=== PATIENT | female | born 1970 | race Caucasian/White ===

== ENCOUNTER 2016-05-05 | Outpatient (CLI) | END 2016-05-05 21:37 | disposition critical access hospital (66) | CPT/HCPCS: A0425; A0429 ==

== ENCOUNTER 2016-05-05 21:48 | Emergency (ER) | payer MEDICAID ==
[2016-05-05] MEDS ORDERED: KETOROLAC 60 MG/2 ML VIAL IM STA (21:59)
[2016-05-05] MEDS ORDERED: CYCLOBENZAPRINE 10 MG TABLET PO STA (22:00)
[2016-05-05] MEDS ORDERED: KETOROLAC 60 MG/2 ML VIAL ONE (22:03)
[2016-05-05] MEDS ORDERED: CYCLOBENZAPRINE 10 MG TABLET PO ONE (22:03)
== END 2016-05-05 23:36 | disposition home or self-care (01) ==
DX: S39.012A Strain of muscle, fascia and tendon of lower back, initial encounter (principal); X58.XXXA Exposure to other specified factors, initial encounter; M62.830 Muscle spasm of back; M79.7 Fibromyalgia; Z87.891 Personal history of nicotine dependence
CPT/HCPCS: 72110; 72170; 72202; 96372; 99283; 99284; A9270

== ENCOUNTER 2016-07-27 10:47 | Emergency (ER) | payer MEDICAID ==
[2016-07-27] MEDS ORDERED: BENZONATATE 100 MG CAPSULE PO STA (11:18)
[2016-07-27] MEDS ORDERED: OXYMETAZOLINE NASAL SPRAY NAS STA (11:20)
[2016-07-27] MEDS ORDERED: guaiFENesin/DEXTROMETHORPHAN 10 ML UDC PO STA (11:20)
[2016-07-27] MEDS ORDERED: BENZONATATE 100 MG CAPSULE PO ONE (11:38)
[2016-07-27] MEDS ORDERED: guaiFENesin/DEXTROMETHORPHAN 10 ML UDC ONE (11:38)
[2016-07-27] MEDS ORDERED: OXYMETAZOLINE NASAL SPRAY NAS ONE (11:38)
== END 2016-07-27 12:49 | disposition home or self-care (01) ==
DX: J06.9 Acute upper respiratory infection, unspecified (principal)
CPT/HCPCS: 71020; 99283; A9270

== ENCOUNTER 2016-08-02 13:14 | Emergency (ER) | payer MEDICAID | END 2016-08-02 14:38 | disposition home or self-care (01) | DX: H66.92 Otitis media, unspecified, left ear (principal); H10.9 Unspecified conjunctivitis; J06.9 Acute upper respiratory infection, unspecified; J45.909 Unspecified asthma, uncomplicated; M79.7 Fibromyalgia; M06.9 Rheumatoid arthritis, unspecified; Z87.891 Personal history of nicotine dependence ==

== ENCOUNTER 2016-08-10 12:08 | Emergency (ER) | payer MEDICAID ==
[2016-08-10] MEDS ORDERED: IPRATROPIUM/ALBUTEROL 3 ML NEB INH STA (12:40)
[2016-08-10] MEDS ORDERED: IPRATROPIUM/ALBUTEROL 3 ML NEB INH ONE (12:45)
[2016-08-10] MEDS ORDERED: IBUPROFEN 800 MG TABLET PO STA (13:53)
[2016-08-10] MEDS ORDERED: IBUPROFEN 800 MG TABLET PO ONE (14:12)
== END 2016-08-10 14:18 | disposition home or self-care (01) ==
DX: J45.909 Unspecified asthma, uncomplicated (principal); M79.7 Fibromyalgia; M06.9 Rheumatoid arthritis, unspecified; Z87.891 Personal history of nicotine dependence
CPT/HCPCS: 71020; 94640; 94664; 99283; 99284; A9270; J7620

== ENCOUNTER 2016-10-10 13:15 | Outpatient (CLI) | payer MEDICAID ==
--- NOTE | 2016-10-10 17:13 | XRAY Report ---
TWO VIEW THORACIC SPINE: 10/10/2016 CLINICAL INDICATION: Pain. FINDINGS: Frontal and lateral views of the thoracic spine demonstrate normal height and alignment of the vertebral bodies. The disk spaces are preserved. No fracture is seen. No paraspinal hematoma is present. IMPRESSION: NORMAL THORACIC SPINE. JOB #: [id number] EXT JOB #:[id number]
--- NOTE | 2016-10-10 17:15 | XRAY Report ---
THREE VIEW CERVICAL SPINE: 10/10/2016 CLINICAL INDICATION: Chronic numbness, tingling. AP, lateral, odontoid views of the cervical spine demonstrate minimal degenerative disk disease at C5 -6. There is no evidence of acute fracture or subluxation. The prevertebral soft tissues are unrema rkable. IMPRESSION: MINIMAL DEGENERATIVE CHANGES. JOB #: [id number] EXT JOB #:[id number]
--- NOTE | 2016-10-10 17:15 | XRAY Report ---
THREE VIEW SACRUM AND COCCYX: 10/10/2016 CLINICAL INDICATION: Pain, chronic numbness and tingling. FINDINGS: AP, oblique, and lateral views of the sacrum and coccyx demonstrate normal alignment. The sacral ala are preserved. The sacroiliac joints appear unremarkable. There is no evidence of acute fr acture. IMPRESSION: NORMAL SACRUM AND COCCYX. JOB #: [id number] EXT JOB #:[id number]
== END 2016-10-10 13:16 | disposition home or self-care (01) ==
LOC: DI 13:15
PROVIDERS: ATTEND Nurse Practitioner Family
DX: M50.322 Other cervical disc degeneration at C5-C6 level (principal)
CPT/HCPCS: 72040; 72070; 72220

== ENCOUNTER 2016-12-06 13:28 | Outpatient (CLI) | payer MEDICAID | END 2016-12-06 13:29 | disposition home or self-care (01) | LOC: NS 13:28 | PROVIDERS: ATTEND Nurse Practitioner Family | DX: Z71.3 Dietary counseling and surveillance (principal); M79.7 Fibromyalgia; M47.896 Other spondylosis, lumbar region; M54.89 Other dorsalgia; Z68.37 Body mass index [BMI] 37.0-37.9, adult | CPT/HCPCS: 97802 ==

== ENCOUNTER 2017-03-11 19:02 | Outpatient (CLI) | payer MEDICAID ==
--- NOTE | 2017-03-12 13:27 | Ultrasound Report ---
PELVIC ULTRASOUND: 03/11/2017 CLINICAL INDICATION: Pelvic pain. TECHNIQUE: Transabdominal pelvic ultrasound performed for global evaluation. Transvaginal pelvic ul trasound performed for detailed evaluation. Real-time scanning performed and static images obtained. FINDINGS: The uterus is anteverted, measuring 7.5 x 6.3 x 3.5 cm. The endometrial echo complex mariana ures 8 mm. An anterior subserosal leiomyoma is noted, measuring 2.8 x 2.6 x 2.3 cm. The right ovary is normal, measuring 2.8 x 2.5 x 2.1 cm. The left ovary measures 3.9 x 2.7 x 2.1 cm, and demonstrat es a 2.1 cm follicle. No free fluid is present. IMPRESSION: ANTERIOR SUBSEROSAL LEIOMYOMA, MEASURING 2.8 CM. LEFT OVARIAN FOLLICLE. JOB #: [id number] EXT JOB #:[id number]
== END 2017-03-11 19:03 | disposition home or self-care (01) ==
LOC: DI 19:02
PROVIDERS: ATTEND Registered Nurse
DX: R10.2 Pelvic and perineal pain (principal); D25.2 Subserosal leiomyoma of uterus
CPT/HCPCS: 76830; 76856

== ENCOUNTER 2017-03-16 10:11 | Emergency (ER) | payer MEDICAID ==
[2017-03-16] MEDS ORDERED: diphenhydrAMINE INJ 50 MG/ML VIAL IVP STA (10:35)
[2017-03-16] MEDS ORDERED: methylPREDNISolone SUCCINATE 125 MG/2 ML VIAL IVP STA (10:35)
[2017-03-16] MEDS ORDERED: SODIUM CHLORIDE 0.9% 1,000 ML IV ONE (10:36)
[2017-03-16] MEDS ORDERED: methylPREDNISolone SUCCINATE 125 MG/2 ML VIAL ONE (10:46)
[2017-03-16] MEDS ORDERED: diphenhydrAMINE INJ 50 MG/ML VIAL ONE (10:46)
--- NOTE | 2017-03-16 12:31 | ED Physician Documentation ---
History of Present Illness - Stated complaint Stated Complaint: SOA - Chief complaint Chief Complaint: Allergic Rx - History obtained from History obtained from: Patient (pt states that she started Prazosyn in the past day and states that after the first dose she started to have a sore throat, swollen tongue, and problems breathing, no fevers, no rashes, no nausea or vomiting. states that she took this medicaiton in the past and had "a reaction " but does not know what it was.) Review of Systems Constitutional: denies: Fever, Chills Eyes: denies: Loss of vision, Photophobia Throat: reports: Sore throat, Other (Swollen throat). denies: Dental pain / toothache, Oral lesions / sores Cardiac: denies: Chest pain / pressure Respiratory: reports: Dyspnea. denies: Cough, Wheezing GI: denies: Abdominal Pain, Nausea, Constipation, Diarrhea : denies: Dysuria, Frequency Skin: denies: Rash, Laceration (s) Musculoskeletal: denies: Back pain Neurologic: denies: Headache, LOC PD PAST MEDICAL HISTORY - Past Medical History Cardiovascular: None Respiratory: None, Asthma Neuro: Headache/migraine Endocrine/Autoimmune: None GI: None : None HEENT: None Psych: Depression, Anxiety, Post traumatic stress disorder Musculoskeletal: Fibromyalgia, Rheumatoid arthritis, Chronic back pain - Past Surgical History Past Surgical History: Yes General: Cholecystectomy Ortho: Rotator cuff repair, 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, LEEP (Cervical surgery) - Present Medications Home Medications: Ambulatory Orders Medication Instructions Recorded Confirmed oxyCODONE/ACET 5/325 [Percocet 5 1 - 2 tab PO Q4-6H PRN #20 tablet 03/16/16 mg/325 mg] predniSONE [Prednisone] 60 mg PO DAILY #9 tablet 03/16/17 - Allergies Allergies/Adverse Reactions: Allergies Allergy/AdvReac Type Severity Reaction Status Date / Time amitriptyline Allergy Severe Hallucinati Verified 03/16/17 10:18 ons nortriptyline Allergy Severe Unknown Verified 03/16/17 10:18 cephalexin monohydrate * Allergy Intermediate Rash Verified 03/16/17 10:18 [From Keflex] amoxicillin Allergy Unknown Verified 03/16/17 10:18 doxycycline Allergy Unknown Verified 03/16/17 10:18 gabapentin Allergy Unknown Verified 03/16/17 10:18 prazosin Allergy Edema Verified 03/16/17 10:32 pregabalin [From Lyrica] Allergy Unknown Verified 03/16/17 10:18 sumatriptan [From Imitrex] Allergy Unknown Verified 03/16/17 10:18 sumatriptan succinate * Allergy Unknown Verified 03/16/17 10:18 [From Imitrex] metoclopramide HCl * AdvReac Anxiety Verified 03/16/17 10:18 [From Reglan] ondansetron HCl * AdvReac Anxiety Verified 03/16/17 10:18 [From Zofran (as hydrochloride)] prochlorperazine AdvReac Unknown Verified 03/16/17 10:18 [From Compazine] prochlorperazine edisylate * AdvReac Unknown Verified 03/16/17 10:18 [From Compazine] prochlorperazine maleate * AdvReac Unknown Verified 03/16/17 10:18 [From Compazine] Sulfa (Sulfonamide AdvReac Dizziness Verified 03/16/17 10:18 Antibiotics) - Social History Does the pt smoke?: No Smoking Status: Never smoker Does the pt drink ETOH?: No Does the pt have substance abuse?: No - Immunizations Immunizations are current?: Yes - POLST Patient has POLST: No PD ED PE NORMAL - Vitals Vital signs reviewed: Yes - General General: Alert and oriented X 3 - HEENT HEENT: PERRL, EOMI, Moist mucous membranes - Neck Neck: Supple, no meningeal sign - Cardiac Cardiac: RRR, No murmur, No gallop, No rub - Respiratory Respiratory: No respiratory distress, Clear bilaterally - Abdomen Abdomen: Non tender, Non distended - Back Back: No CVA TTP - Derm Derm: Normal color, Warm and dry, No rash - Extremities Extremities: No deformity, No edema - Neuro Neuro: Alert and oriented X 3, transition social worker 2-12 intact Results - Vitals Vitals: Vital Signs - 24 hr 03/16/17 03/16/17 03/16/17 10:15 10:58 11:49 Temperature 35.9 C L 36.2 C L Heart Rate 86 83 68 Respiratory 24 12 16 Rate Blood Pressure 143/87 H 142/91 H 136/76 H O2 Saturation 98 99 100 Oxygen O2 Source Room air - EKG (time done) 1023 Rate: Rate (enter#) Rhythm: NSR [place]: Normal Intervals: Normal [place], QRS normal QRS: Normal Ischemia: Non specific changes PD MEDICAL DECISION MAKING - ED course Complexity details: d/w patient ED course: pt with sx of an allergic reaction after taking a new medication. was given benadryl and steroids in the ER and reports a great improvement in her symptoms. doubt anaphylaxis. Recommended that she stop the medication. She was given return precautions. Departure - Departure Disposition: 01 Home, Self Care Clinical Impression: Allergic reaction caused by a drug Qualifiers: Encounter type: initial encounter Qualified Code(s): T78.40XA - Allergy, unspecified, initial encounter Condition: Good Instructions: ED Drug React Allergic Follow-Up: Mat Gibson MD [Primary Care Provider] - Prescriptions: predniSONE [Prednisone] 60 mg PO DAILY #9 tablet Comments: Recommend that you stop the Prazosyn. I suspect that this is what caused your allergic reaction. Return to the ER for any new or worsening symptoms.
[2017-03-16 12:56] VITALS: BP 124/65
== END 2017-03-16 12:54 | disposition home or self-care (01) ==
LOC: ED 10:11
DX: J02.9 Acute pharyngitis, unspecified (principal); T44.6X5A Adverse effect of alpha-adrenoreceptor antagonists, initial encounter; J45.909 Unspecified asthma, uncomplicated; M79.7 Fibromyalgia; M06.9 Rheumatoid arthritis, unspecified
CPT/HCPCS: 93005; 96361; 96374; 96375; 99283; 99284

== ENCOUNTER 2017-07-05 08:13 | Outpatient (CLI) | payer MEDICAID ==
[2017-07-05 13:10] LABS: BASOPHILS % (AUTO) 0.6 %; EOSINOPHILS # (AUTO) 0.2 10^3/uL (0.0-0.7); EOSINOPHILS % (AUTO) 2.4 %; HGB - HEMOGLOBIN 13.2 g/dL (12.0-16.0); LYMPHOCYTES % (AUTO) 36.5 %; MEAN CORPUSCULAR VOLUME 82.9 fL (81.0-99.0); MONOCYTES # (AUTO) 0.5 10^3/uL (0.0-1.0); MONOCYTES % (AUTO) 5.8 %; NEUTROPHILS # (AUTO) 4.5 10^3/uL (1.5-6.6); NEUTROPHILS % (AUTO) 54.7 %; PLT - PLATELET COUNT 350 10^3/uL (130-450); RED BLOOD COUNT 4.55 10^6/uL (4.20-5.40); RED CELL DISTRIBUTION WIDTH 14.3 % (12.0-15.0); WHITE BLOOD COUNT 8.3 x10^3/uL (4.8-10.8)
[2017-07-05 13:36] LABS: THYROID STIMULATING HORMONE 1.59 uIU/mL (0.34-5.60)
[2017-07-05 13:39] LABS: FREE T4 (FREE THYROXINE) 0.55 ng/dL (0.58-1.64)
[2017-07-05 14:15] LABS: ALBUMIN 3.9 g/dL (3.2-5.5); ALBUMIN/GLOBULIN RATIO 1.3 (1.0-2.2); ALKALINE PHOSPHATASE 83 IU/L (42-121); ALT ALANINE AMINOTRANSFERASE 45 IU/L (10-60); AST ASPARTATE AMINOTRANSFERASE 38 IU/L (10-42); BILIRUBIN,TOTAL < 0.2 mg/dL (0.2-1.0); BUN - BLOOD UREA NITROGEN 10 mg/dL (6-20); CALCIUM 8.7 mg/dL (8.5-10.3); CARBON DIOXIDE - CO2 24 mmol/L (21-32); CHLORIDE 104 mmol/L (101-111); CHOL/HDL RATIO 8.8 (<4.4); CHOLESTEROL 254 mg/dL; CREATININE 0.7 mg/dL (0.4-1.0); GFR - MDRD 90 (>89); GLUCOSE 98 mg/dL (70-100); HDL CHOLESTEROL 29 mg/dL; SODIUM 137 mmol/L (135-145); TOTAL PROTEIN 6.9 g/dL (6.7-8.2)
== END 2017-07-05 08:14 | disposition home or self-care (01) ==
LOC: LAB.N 08:13
PROVIDERS: ATTEND Family Medicine
DX: E78.5 Hyperlipidemia, unspecified (principal); R53.83 Other fatigue; F41.8 Other specified anxiety disorders
CPT/HCPCS: 36415; 80053; 80061; 83721; 84439; 84443; 85025

== ENCOUNTER 2017-07-30 11:13 | Outpatient (CLI) | payer OTHER, MEDICAID | END 2017-07-30 11:14 | disposition home or self-care (01) | LOC: SC 11:13 | PROVIDERS: ATTEND Internal Medicine Pulmonary Disease | DX: G47.10 Hypersomnia, unspecified (principal); G47.8 Other sleep disorders; R06.83 Snoring; G47.21 Circadian rhythm sleep disorder, delayed sleep phase type | CPT/HCPCS: 99203; 99212 ==

== ENCOUNTER 2017-08-06 08:00 | Outpatient (CLI) | payer OTHER, MEDICAID ==
[2017-08-06 19:32] LABS: CHOL/HDL RATIO 5.3 (<4.4); CHOLESTEROL 191 mg/dL; HDL CHOLESTEROL 36 mg/dL; LDL CHOLESTEROL,CALCULATED 111 mg/dL; LDL/HDL RATIO 3.1 (<4.4); VLDL CHOLESTEROL 44 mg/dL
[2017-08-06 19:47] LABS: THYROID STIMULATING HORMONE 1.41 uIU/mL (0.34-5.60)
[2017-08-06 19:49] LABS: FREE T4 (FREE THYROXINE) 0.75 ng/dL (0.58-1.64)
== END 2017-08-06 08:01 | disposition home or self-care (01) ==
LOC: LAB.N 08:00
PROVIDERS: ATTEND Family Medicine
DX: E03.9 Hypothyroidism, unspecified (principal); E78.1 Pure hyperglyceridemia
CPT/HCPCS: 36415; 80061; 83721; 84439; 84443; 84481; 86376

== ENCOUNTER 2017-09-19 21:35 | Outpatient (CLI) | payer OTHER, MEDICAID | END 2017-09-19 21:36 | disposition home or self-care (01) | LOC: SC 21:35 | PROVIDERS: ATTEND Internal Medicine Pulmonary Disease | DX: G47.33 Obstructive sleep apnea (adult) (pediatric) (principal); G47.61 Periodic limb movement disorder | CPT/HCPCS: 95810 ==

== ENCOUNTER 2017-10-29 14:22 | Outpatient (CLI) | payer OTHER, MEDICAID | END 2017-10-29 14:23 | disposition home or self-care (01) | LOC: SC 14:22 | PROVIDERS: ATTEND Nurse Practitioner Family | DX: G47.33 Obstructive sleep apnea (adult) (pediatric) (principal); G47.61 Periodic limb movement disorder | CPT/HCPCS: 99212; 99214 ==

== ENCOUNTER 2017-11-29 11:36 | Outpatient (CLI) | payer MEDICAID, OTHER ==
[2017-11-29 19:48] LABS: ALBUMIN/GLOBULIN RATIO 1.2 (1.0-2.2); ALKALINE PHOSPHATASE 101 IU/L (42-121); ALT ALANINE AMINOTRANSFERASE 72 IU/L (10-60); AST ASPARTATE AMINOTRANSFERASE 61 IU/L (10-42); BILIRUBIN,TOTAL 0.7 mg/dL (0.2-1.0); BUN - BLOOD UREA NITROGEN 10 mg/dL (6-20); CALCIUM 8.7 mg/dL (8.5-10.3); CARBON DIOXIDE - CO2 26 mmol/L (21-32); CHLORIDE 106 mmol/L (101-111); CHOL/HDL RATIO 5.8 (<4.4); CHOLESTEROL 222 mg/dL; CREATININE 0.7 mg/dL (0.4-1.0); GFR - MDRD 89 (>89); GLUCOSE 97 mg/dL (70-100); HDL CHOLESTEROL 38 mg/dL; LDL CHOLESTEROL,CALCULATED 130 mg/dL; LDL/HDL RATIO 3.4 (<4.4); SODIUM 138 mmol/L (135-145); TOTAL PROTEIN 7.3 g/dL (6.7-8.2); VLDL CHOLESTEROL 54 mg/dL
== END 2017-11-29 11:37 | disposition home or self-care (01) ==
LOC: LAB.N 11:36
PROVIDERS: ATTEND Family Medicine
DX: E78.1 Pure hyperglyceridemia (principal)
CPT/HCPCS: 36415; 80053; 80061; 83721

== ENCOUNTER 2018-01-28 11:14 | Outpatient (CLI) | payer MEDICAID | END 2018-01-28 11:15 | disposition home or self-care (01) | LOC: SC 11:14 | PROVIDERS: ATTEND Internal Medicine Pulmonary Disease | DX: G47.33 Obstructive sleep apnea (adult) (pediatric) (principal) | CPT/HCPCS: 99212; 99213 ==

== ENCOUNTER 2018-04-12 00:32 | Outpatient (CLI) | payer MEDICAID | END 2018-04-12 00:33 | disposition critical access hospital (66) | LOC: EMS 00:32 | PROVIDERS: ATTEND Surgery | DX: R11.2 Nausea with vomiting, unspecified (principal); R10.10 Upper abdominal pain, unspecified; R55 Syncope and collapse | CPT/HCPCS: A0425; A0429; A0999 ==

== ENCOUNTER 2018-04-12 00:54 | Emergency (ER) | payer MEDICAID ==
--- NOTE | 2018-04-12 01:08 | ED Physician Documentation ---
PD HPI SYNCOPE - Stated complaint Stated Complaint: N/V, SYNCOPE - Chief complaint Chief Complaint: Neuro - History obtained from History obtained from: Patient, Family - History of Present Illness Witnessed: Witnessed Timing - onset: How many minutes ago (approximately 30-40 minutes PSYCHIATRIST) Duration: Seconds Preceding symptoms: Light headed, Generalized weakness Associated symptoms: Incontinant of urine, Incontinant of stool, Nausea / vomiting, Abdominal pain Injury occurred: None Similar symptoms before: Has not had sx before Recently seen: Not recently seen - Additional information Additional information: patient has episodic anxiety and used marijuana tonight via vape pen to try to quell her anxiety. after taking hits from the vape pen, she became lightheaded, nauseas. family noticed she looked pale and appeared uneasy, asked patient if she was OK. patient became weak (generalized) and sat on couch, then started to fall off couch but family helped her to ground where she lost consciousness, had brief seizure-like activity, and had bowel and bladder incontinence. BIBA, AAOx3, c/o mild DORMAN, epigastric and back pain, generalized weakness, and ongoing nausea Review of Systems Constitutional: reports: Fatigue. denies: Fever, Chills, Myalgias, Sweats Eyes: reports: Reviewed and negative Cardiac: reports: Reviewed and negative Respiratory: reports: Reviewed and negative GI: reports: Abdominal Pain, Nausea, Vomiting. denies: Abdominal Swelling : reports: Incontinent. denies: Dysuria, Frequency Musculoskeletal: reports: Back pain. denies: Neck pain Neurologic: reports: Generalized weakness, Syncope, Headache. 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, LEEP (Cervical surgery) - Present Medications Home Medications: Ambulatory Orders Medication Instructions Recorded Confirmed oxyCODONE/ACET 5/325 [Percocet 5 1 - 2 tab PO Q4-6H PRN #20 tablet 03/16/03/16/ mg/325 mg] Epinephrine [Epipen 2-Walter] 0.3 mg IJ PRN PRN #2 auto.injct 03/16/17 predniSONE [Prednisone] 60 mg PO DAILY #9 tablet 03/16/17 Promethazine [Phenergan] 25 mg PO Q6H PRN #10 tab 04/12/18 - Allergies Allergies/Adverse Reactions: Allergies Allergy/AdvReac Type Severity Reaction Status Date / Time amitriptyline Allergy Severe Hallucinati Verified 03/16/17 10:18 ons nortriptyline Allergy Severe Unknown Verified 03/16/17 10:18 cephalexin monohydrate * Allergy Intermediate Rash Verified 03/16/17 10:18 [From Keflex] amoxicillin Allergy Unknown Verified 03/16/17 10:18 doxycycline Allergy Unknown Verified 04/12/18 01:02 gabapentin Allergy Unknown Verified 04/12/18 01:02 prazosin Allergy Edema Verified 04/12/18 01:02 pregabalin [From Lyrica] Allergy Unknown Verified 04/12/18 01:02 sumatriptan [From Imitrex] Allergy Unknown Verified 04/12/18 01:02 sumatriptan succinate * Allergy Unknown Verified 04/12/18 01:02 [From Imitrex] metoclopramide HCl * AdvReac Anxiety Verified 04/12/18 01:02 [From Reglan] ondansetron HCl * AdvReac Anxiety Verified 04/12/18 01:02 [From Zofran (as hydrochloride)] prochlorperazine AdvReac Unknown Verified 04/12/18 01:02 [From Compazine] prochlorperazine edisylate * AdvReac Unknown Verified 04/12/18 01:02 [From Compazine] prochlorperazine maleate * AdvReac Unknown Verified 04/12/18 01:02 [From Compazine] Sulfa (Sulfonamide AdvReac Dizziness Verified 04/12/18 01:02 Antibiotics) - Social History Does the pt smoke?: No Smoking Status: Never smoker Does the pt drink ETOH?: No Does the pt have substance abuse?: No - Immunizations Immunizations are current?: Yes - POLST Patient has POLST: No PD ED PE NORMAL - Vitals Vital signs reviewed: Yes - General General: Alert and oriented X 3, No acute distress, Well developed/nourished - HEENT HEENT: Atraumatic, PERRL, EOMI, Moist mucous membranes - Neck Neck: Supple, no meningeal sign, No bony TTP - Cardiac Cardiac: RRR, No murmur, No gallop, No rub - Respiratory Respiratory: No respiratory distress, Clear bilaterally - Abdomen Abdomen: Normal bowel sounds, Soft, Non tender, Non distended - Back Back: No spinal TTP - Derm Derm: Normal color, Warm and dry - Extremities Extremities: No edema - Neuro Neuro: Alert and oriented X 3, marketing support coordinator 2-12 intact, No motor deficit, No sensory deficit, Normal speech Eye Opening: Spontaneous Motor: Obeys Commands Verbal: Oriented GCS Score: 15 - Psych Psych: Normal mood, Normal affect Results - Vitals Vitals: Vital Signs - 24 hr 04/12/18 04/12/18 04/12/18 00:58 01:10 01:48 Temperature 35.0 C L Heart Rate 94 85 Respiratory 17 19 16 Rate Blood Pressure 135/95 H 135/88 H O2 Saturation 96 100 04/12/18 04/12/18 04/12/18 02:00 02:20 03:06 Temperature Heart Rate 81 73 Respiratory 18 15 16 Rate Blood Pressure 139/86 H O2 Saturation 100 100 04/12/18 04/12/18 03:12 03:24 Temperature Heart Rate Respiratory 16 17 Rate Blood Pressure 146/85 H O2 Saturation Oxygen O2 Source Room air - EKG (time done) No standard instances Rate: Rate (enter#) (88) Rhythm: NSR [place]: Normal Intervals: Normal [place] QRS: Normal Ischemia: Normal ST segments - Labs Labs: Laboratory Tests 04/12/18 04/12/18 04/12/18 01:15 01:45 01:45 WBC 10.9 H RBC 4.22 Hgb 13.2 Hct 38.5 MCV 91.1 MCH 31.2 H MCHC 34.2 RDW 13.9 Plt Count 288 MPV 6.4 L Neut # (Auto) 7.3 H Lymph # (Auto) 2.7 [place] # (Auto) 0.6 Eos # (Auto) 0.2 Baso # (Auto) 0.2 H Absolute Nucleated RBC 0.01 Nucleated RBC % 0.0 Sodium 137 Potassium 3.3 L Chloride 101 Carbon Dioxide 28 Anion Gap 8.0 BUN 15 Creatinine 0.7 Estimated GFR (MDRD) 89 Glucose 155 H Calcium 8.2 L Total Bilirubin 0.5 AST 39 ALT 50 Alkaline Phosphatase 88 Troponin I Total Protein 7.0 Albumin 3.9 Globulin 3.1 Albumin/Globulin Ratio 1.3 Lipase 28 Urine Color YELLOW Urine Clarity CLEAR Urine pH 6.0 Ur Specific [place] >=1.030 H Urine Protein 30 H Urine Glucose (UA) NEGATIVE Urine Ketones TRACE Urine Occult Blood SMALL H Urine Nitrite NEGATIVE Urine Bilirubin NEGATIVE Urine Urobilinogen 0.2 (NORMAL) Ur Leukocyte Esterase NEGATIVE Urine RBC 6-10 H Urine WBC 0-3 Ur Squamous Epith Cells MOD Squamous H Urine Bacteria Rare Urine Casts 26-50 Hyaline Casts Urine Mucus Moderate Strands Ur Microscopic Review INDICATED Urine Culture Comments NOT INDICATED 04/12/18 01:45 WBC RBC Hgb Hct MCV MCH MCHC RDW Plt Count MPV Neut # (Auto) Lymph # (Auto) [place] # (Auto) Eos # (Auto) Baso # (Auto) Absolute Nucleated RBC Nucleated RBC % Sodium Potassium Chloride Carbon Dioxide Anion Gap BUN Creatinine Estimated GFR (MDRD) Glucose Calcium Total Bilirubin AST ALT Alkaline Phosphatase Troponin I < 0.04 Total Protein Albumin Globulin Albumin/Globulin Ratio Lipase Urine Color Urine Clarity Urine pH Ur Specific [place] Urine Protein Urine Glucose (UA) Urine Ketones Urine Occult Blood Urine Nitrite Urine Bilirubin Urine Urobilinogen Ur Leukocyte Esterase Urine RBC Urine WBC Ur Squamous Epith Cells Urine Bacteria Urine Casts Urine Mucus Ur Microscopic Review Urine Culture Comments - Rads (name of study) chest xray Radiology: Prelim report reviewed, See rad report PD MEDICAL DECISION MAKING - ED course Complexity details: reviewed old records, reviewed results, re-evaluated patient, considered differential, d/w patient, d/w family ED course: On reevaluation, after tests resulted and IV fluids and zofran, patient reports feeling well, feels ready to go home. Departure - Departure Disposition: 01 Home, Self Care Clinical Impression: Syncope, Hypokalemia Condition: Good Instructions: ED Potassium Deficiency, ED Fainting Unkn Cause Follow-Up: Mat Gibson MD [Primary Care Provider] - Within 1 week Prescriptions: Promethazine [Phenergan] 25 mg PO Q6H PRN #10 tab PRN Reason: Nausea / Vomiting Discharge Date/Time: 04/12/18 03:30
[2018-04-12 01:28] LABS: BILIRUBIN,URINE NEGATIVE (NEGATIVE); GLUCOSE, URINE (UA) NEGATIVE (NEGATIVE); KETONES,URINE (UA) TRACE mg/dL (NEGATIVE); LEUKOCYTE ESTERASE, URINE NEGATIVE (NEGATIVE); NITRITE,URINE NEGATIVE (NEGATIVE); OCCULT BLOOD,URINE SMALL (NEGATIVE); PROTEIN,URINE 30 mg/dL (NEGATIVE); UROBILINOGEN,URINE 0.2 (NORMAL) E.U./dL (NORMAL)
[2018-04-12 01:29] LABS: CLARITY,URINE CLEAR (CLEAR)
[2018-04-12 01:35] LABS: SQUAMOUS EPITHELIAL CELL,UR MOD Squamous (<= Few)
[2018-04-12 01:36] LABS: BACTERIA,URINE Rare /HPF (None Seen); CASTS, URINE 26-50 Hyaline Casts /LPF; MUCUS,URINE Moderate Strands
[2018-04-12] MEDS ORDERED: PROMETHAZINE INJ 12.5 MG in SODIUM CHLORIDE 0.9% 50 ML IV STA (01:48)
[2018-04-12] MEDS ORDERED: SODIUM CHLORIDE 0.9% 1,000 ML IV STA (01:48)
[2018-04-12 01:51] LABS: BASOPHILS # (AUTO) 0.2 10^3/uL (0.0-0.1); BASOPHILS % (AUTO) 1.5 %; EOSINOPHILS # (AUTO) 0.2 10^3/uL (0.0-0.7); EOSINOPHILS % (AUTO) 1.6 %; HGB - HEMOGLOBIN 13.2 g/dL (12.0-16.0); LYMPHOCYTES # (AUTO) 2.7 10^3/uL (1.5-3.5); LYMPHOCYTES % (AUTO) 24.9 %; MEAN CORPUSCULAR HEMOGLOBIN 31.2 pg (27.0-31.0); MEAN CORPUSCULAR HGB CONC 34.2 g/dL (32.0-36.0); MEAN CORPUSCULAR VOLUME 91.1 fL (81.0-99.0); MEAN PLATELET VOLUME 6.4 fL (7.9-10.8); MONOCYTES # (AUTO) 0.6 10^3/uL (0.0-1.0); MONOCYTES % (AUTO) 5.1 %; NEUTROPHILS # (AUTO) 7.3 10^3/uL (1.5-6.6); NEUTROPHILS % (AUTO) 66.9 %; PLT - PLATELET COUNT 288 10^3/uL (130-450); RED BLOOD COUNT 4.22 10^6/uL (4.20-5.40); RED CELL DISTRIBUTION WIDTH 13.9 % (12.0-15.0); WHITE BLOOD COUNT 10.9 x10^3/uL (4.8-10.8)
[2018-04-12 02:00] LABS: ALBUMIN 3.9 g/dL (3.2-5.5); ALBUMIN/GLOBULIN RATIO 1.3 (1.0-2.2); BILIRUBIN,TOTAL 0.5 mg/dL (0.2-1.0); CALCIUM 8.2 mg/dL (8.5-10.3); CREATININE 0.7 mg/dL (0.4-1.0)
--- NOTE | 2018-04-12 02:50 | XRAY Report ---
Reason: syncope Procedure Date: 04/12/2018 Accession Number: [id number] / [id number] Procedure: XR - Chest 2 View X-Ray CPT Code: 84511 FULL RESULT: EXAM: CHEST RADIOGRAPHY EXAM DATE: 04/12/2018 02:18 AM. CLINICAL HISTORY: Syncope. COMPARISON: THORACIC SPINE 2 VIEW 10/10/2016 1:19 PM. TECHNIQUE: 2 views. FINDINGS: Lungs/Pleura: No focal opacities evident. No pleural effusion. No pneumothorax. Normal volumes. Mediastinum: Heart and mediastinal contours are unremarkable. Other: Prior cholecystectomy. IMPRESSION: Stable normal appearance of the chest. RADIA
[2018-04-12 03:13] VITALS: BP 146/85
[2018-04-12] MEDS ORDERED: POTASSIUM BICARB 25 MEQ TABLET PO STA (03:14)
== END 2018-04-12 03:30 | disposition home or self-care (01) ==
LOC: EDUNIT# → ED 00:54
DX: R55 Syncope and collapse (principal); E87.6 Hypokalemia
CPT/HCPCS: 36415; 71046; 80053; 81001; 83690; 84484; 85025; 93005; 96361; 96365; 99284; A9270; J7040; 81003; 87086

== ENCOUNTER 2018-04-25 13:57 | Outpatient (CLI) | payer MEDICAID ==
[2018-04-25 18:55] LABS: BASOPHILS % (AUTO) 0.5 %; EOSINOPHILS # (AUTO) 0.2 10^3/uL (0.0-0.7); EOSINOPHILS % (AUTO) 1.9 %; HGB - HEMOGLOBIN 14.4 g/dL (12.0-16.0); LYMPHOCYTES # (AUTO) 2.7 10^3/uL (1.5-3.5); LYMPHOCYTES % (AUTO) 32.2 %; MEAN CORPUSCULAR HEMOGLOBIN 30.9 pg (27.0-31.0); MEAN CORPUSCULAR HGB CONC 34.1 g/dL (32.0-36.0); MEAN CORPUSCULAR VOLUME 90.5 fL (81.0-99.0); MONOCYTES # (AUTO) 0.5 10^3/uL (0.0-1.0); MONOCYTES % (AUTO) 5.9 %; NEUTROPHILS % (AUTO) 59.5 %; PLT - PLATELET COUNT 342 10^3/uL (130-450); RED BLOOD COUNT 4.66 10^6/uL (4.20-5.40); RED CELL DISTRIBUTION WIDTH 13.9 % (12.0-15.0); WHITE BLOOD COUNT 8.4 x10^3/uL (4.8-10.8)
[2018-04-25 19:32] LABS: ALBUMIN 4.2 g/dL (3.2-5.5); ALBUMIN/GLOBULIN RATIO 1.2 (1.0-2.2); ALKALINE PHOSPHATASE 92 IU/L (42-121); ALT ALANINE AMINOTRANSFERASE 44 IU/L (10-60); AST ASPARTATE AMINOTRANSFERASE 31 IU/L (10-42); BILIRUBIN,TOTAL 0.8 mg/dL (0.2-1.0); BUN - BLOOD UREA NITROGEN 9 mg/dL (6-20); CALCIUM 8.5 mg/dL (8.5-10.3); CARBON DIOXIDE - CO2 27 mmol/L (21-32); CHLORIDE 104 mmol/L (101-111); CHOL/HDL RATIO 6.1 (<4.4); CHOLESTEROL 249 mg/dL; CREATININE 0.7 mg/dL (0.4-1.0); GFR - MDRD 89 (>89); GLUCOSE 96 mg/dL (70-100); HDL CHOLESTEROL 41 mg/dL; LDL CHOLESTEROL,CALCULATED 159 mg/dL; LDL/HDL RATIO 3.9 (<4.4); SODIUM 139 mmol/L (135-145); TOTAL PROTEIN 7.7 g/dL (6.7-8.2); VLDL CHOLESTEROL 49 mg/dL
[2018-04-26 07:21] LABS: ESTRADIOL 19 pg/mL; PROGESTERONE <0.5 ng/mL
== END 2018-04-25 23:59 | disposition home or self-care (01) ==
LOC: LAB.N 13:57
PROVIDERS: ATTEND Nurse Practitioner
DX: E78.1 Pure hyperglyceridemia (principal); E55.9 Vitamin D deficiency, unspecified; N92.4 Excessive bleeding in the premenopausal period; R53.83 Other fatigue; E03.9 Hypothyroidism, unspecified
CPT/HCPCS: 36415; 80053; 80061; 82306; 82670; 83721; 84144; 84403; 84443; 85025

== ENCOUNTER 2018-05-11 17:19 | Outpatient (CLI) | payer MEDICAID ==
[2018-05-12 19:18] LABS: H. PYLORIS ANTIGEN STL NEGATIVE (Negative)
== END 2018-05-11 23:59 ==
LOC: LAB 17:19
PROVIDERS: ATTEND Nurse Practitioner
DX: R19.7 Diarrhea, unspecified (principal); R10.9 Unspecified abdominal pain
CPT/HCPCS: 82274; 87045; 87046; 87177; 87209; 87338; 87493

== ENCOUNTER 2018-06-29 20:08 | Emergency (ER) | payer MEDICAID ==
[2018-06-29] MEDS ORDERED: HYDROcod/ACETAM 5/325 MG TABLET PO STA (21:57)
[2018-06-29] MEDS ORDERED: levoFLOXacin 250 MG TABLET PO STA (21:57)
--- NOTE | 2018-06-29 21:58 | ED Physician Documentation ---
PD HPI URI - Stated complaint Stated Complaint: SINUS PAIN - Chief complaint Chief Complaint: Heent - History obtained from History obtained from: Patient, Family - History of Present Illness Timing - onset: How many months ago (1) Timing duration: Months (1) Timing details: Gradual onset Pain level max: 8 Pain level now: 8 Associated symptoms: Fever, Nasal congestion, Sinus pain. No: Sore throat, Dry cough Contributing factors: Immunocompromised Improves by: Nothing Worsened by: Other (Bending forward, palpation) Similar symptoms before: Diagnosis (Sinusitis) Recently seen: Clinic (Seen in the clinic 2 weeks ago for same, started on intranasal steroids. Not improving.) Review of Systems Ears: denies: Ear pain Throat: denies: Sore throat Cardiac: denies: Chest pain / pressure Respiratory: denies: Cough GI: denies: Vomiting PD PAST MEDICAL HISTORY - Past Medical History Past Medical History: Yes Cardiovascular: None Respiratory: None, Asthma Neuro: Migraines Endocrine/Autoimmune: None GI: None CHILD PSYCHIATRIST: None : None HEENT: None Psych: Depression, Anxiety, Post traumatic stress disorder Musculoskeletal: Fibromyalgia, Rheumatoid arthritis, Chronic back pain Derm: None - Past Surgical History Past Surgical History: Yes General: Cholecystectomy Ortho: Rotator cuff repair, 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, LEEP (Cervical surgery) - Present Medications Home Medications: Ambulatory Orders Medication Instructions Recorded Confirmed oxyCODONE/ACET 5/325 [Percocet 5 1 - 2 tab PO Q4-6H PRN #20 tablet 03/16/16 03/16/17 mg/325 mg] EPINEPHrine [Epipen 2-Walter] 0.3 mg IJ PRN PRN #2 auto.injct 03/16/17 predniSONE [Prednisone] 60 mg PO DAILY #9 tablet 03/16/17 Promethazine [Phenergan] 25 mg PO Q6H PRN #10 tab 04/12/18 Levofloxacin [Levaquin] 750 mg PO DAILY #4 tablet 06/29/18 - Allergies Allergies/Adverse Reactions: Allergies Allergy/AdvReac Type Severity Reaction Status Date / Time amitriptyline Allergy Severe Hallucinati Verified 03/16/17 10:18 ons nortriptyline Allergy Severe Unknown Verified 03/16/17 10:18 cephalexin monohydrate * Allergy Intermediate Rash Verified 03/16/17 10:18 [From Keflex] amoxicillin Allergy Unknown Verified 03/16/17 10:18 doxycycline Allergy Unknown Verified 04/12/18 01:02 gabapentin Allergy Unknown Verified 04/12/18 01:02 prazosin Allergy Edema Verified 04/12/18 01:02 pregabalin [From Lyrica] Allergy Unknown Verified 04/12/18 01:02 sumatriptan [From Imitrex] Allergy Unknown Verified 04/12/18 01:02 sumatriptan succinate * Allergy Unknown Verified 04/12/18 01:02 [From Imitrex] metoclopramide HCl * AdvReac Anxiety Verified 04/12/18 01:02 [From Reglan] ondansetron HCl * AdvReac Anxiety Verified 04/12/18 01:02 [From Zofran (as hydrochloride)] prochlorperazine AdvReac Unknown Verified 04/12/18 01:02 [From Compazine] prochlorperazine edisylate * AdvReac Unknown Verified 04/12/18 01:02 [From Compazine] prochlorperazine maleate * AdvReac Unknown Verified 04/12/18 01:02 [From Compazine] Sulfa (Sulfonamide AdvReac Dizziness Verified 04/12/18 01:02 Antibiotics) - Social History Does the pt smoke?: No Smoking Status: Never smoker Does the pt drink ETOH?: No Does the pt have substance abuse?: No - Immunizations Immunizations are current?: Yes - POLST Patient has POLST: No PD ED PE NORMAL - Vitals Vital signs reviewed: Yes - General General: Alert and oriented X 3, No acute distress, Well developed/nourished - HEENT HEENT: PERRL, Ears normal, Moist mucous membranes, Pharynx benign, Other (Diffuse tenderness to palpation over the frontal and maxillary sinuses) - Neck Neck: Supple, no meningeal sign, No adenopathy - Cardiac Cardiac: RRR, Strong equal pulses - Respiratory Respiratory: No respiratory distress, Clear bilaterally - Abdomen Abdomen: Soft, Non tender, Non distended - Derm Derm: Warm and dry, No rash - Neuro Neuro: Alert and oriented X 3 - Psych Psych: Normal mood, Normal affect Results - Vitals Vitals: Vital Signs - 24 hr 06/29/18 06/29/18 20:16 22:06 Temperature 36.7 C 36.6 C Heart Rate 95 89 Respiratory 20 18 Rate Blood Pressure 163/99 H 153/110 H O2 Saturation 96 100 Oxygen O2 Source Room air PD MEDICAL DECISION MAKING - ED course Complexity details: considered differential, d/w patient, d/w family ED course: 47-year-old female presents to the emergency department for acute sinusitis. Has failed conservative treatment without antibiotics. She has a history of multiple medication allergies, therefore will utilize Levaquin for her sinusitis. Patient counseled regarding signs and symptoms for which I believe and urgent re-evaluation would be necessary. Patient with good understanding of and agreement to plan and is comfortable going home at this time This document was made in part using voice recognition software. While efforts are made to proofread this document, sound alike and grammatical errors may occur. Departure - Departure Disposition: 01 Home, Self Care Clinical Impression: Sinusitis Qualifiers: Sinusitis location: pansinusitis Chronicity: acute Recurrence: non-recurrent Qualified Code(s): J01.40 - Acute pansinusitis, unspecified Condition: Good Instructions: ED Sinusitis Abx Tx Follow-Up: Darya Rodriguez DNP [Primary Care Provider] - Within 1 week Prescriptions: Levofloxacin [Levaquin] 750 mg PO DAILY #4 tablet Comments: Take all antibiotics until gone. Return if you worsen. Follow-up with your doctor for further care. Discharge Date/Time: 06/29/18 22:07
[2018-06-29 22:09] VITALS: BP 153/110
== END 2018-06-29 22:07 | disposition home or self-care (01) ==
LOC: ED 20:08
DX: J01.40 Acute pansinusitis, unspecified (principal); Z88.1 Allergy status to other antibiotic agents; Z88.2 Allergy status to sulfonamides
CPT/HCPCS: 99283; A9270

== ENCOUNTER 2019-01-20 08:00 | Outpatient (CLI) | payer MEDICAID ==
[2019-01-20 12:19] LABS: BASOPHILS # (AUTO) 0.1 10^3/uL (0.0-0.1); BASOPHILS % (AUTO) 0.4 %; EOSINOPHILS # (AUTO) 0.1 10^3/uL (0.0-0.7); EOSINOPHILS % (AUTO) 1.2 %; HGB - HEMOGLOBIN 14.1 g/dL (12.0-16.0); LYMPHOCYTES # (AUTO) 2.8 10^3/uL (1.5-3.5); LYMPHOCYTES % (AUTO) 23.3 %; MEAN CORPUSCULAR HEMOGLOBIN 31.1 pg (27.0-31.0); MEAN CORPUSCULAR HGB CONC 34.6 g/dL (32.0-36.0); MEAN CORPUSCULAR VOLUME 90.1 fL (81.0-99.0); MEAN PLATELET VOLUME 8.9 fL (7.9-10.8); MONOCYTES # (AUTO) 0.7 10^3/uL (0.0-1.0); MONOCYTES % (AUTO) 5.5 %; NEUTROPHILS # (AUTO) 8.2 10^3/uL (1.5-6.6); NEUTROPHILS % (AUTO) 68.3 %; PLT - PLATELET COUNT 332 10^3/uL (130-450); RED BLOOD COUNT 4.53 10^6/uL (4.20-5.40); RED CELL DISTRIBUTION WIDTH 12.6 % (12.0-15.0); WHITE BLOOD COUNT 12.1 x10^3/uL (4.8-10.8)
[2019-01-20 12:43] LABS: BUN - BLOOD UREA NITROGEN 12 mg/dL (6-20); CALCIUM 8.7 mg/dL (8.5-10.3); CARBON DIOXIDE - CO2 26 mmol/L (21-32); CHLORIDE 103 mmol/L (101-111); CHOL/HDL RATIO 5.5 (<4.4); CHOLESTEROL 215 mg/dL; CREATININE 0.7 mg/dL (0.4-1.0); GFR - MDRD 89 (>89); GLUCOSE 103 mg/dL (70-100); HDL CHOLESTEROL 39 mg/dL; LDL CHOLESTEROL,CALCULATED 129 mg/dL; LDL/HDL RATIO 3.3 (<4.4); SODIUM 137 mmol/L (135-145); VLDL CHOLESTEROL 47 mg/dL
== END 2019-01-20 23:59 | disposition home or self-care (01) ==
LOC: LAB.N 08:00
PROVIDERS: ATTEND Physician Assistant Medical
DX: E78.2 Mixed hyperlipidemia (principal); M79.7 Fibromyalgia
CPT/HCPCS: 36415; 80048; 80061; 83721; 83735; 85025

== ENCOUNTER 2019-07-31 10:49 | Outpatient (CLI) | payer OTHER | END 2019-07-31 10:50 | disposition home or self-care (01) | LOC: LAB 10:49 | PROVIDERS: ATTEND Internal Medicine | DX: R10.9 Unspecified abdominal pain (principal) | CPT/HCPCS: 36415; 81599; 86316 ==

== ENCOUNTER 2020-05-28 17:04 | Outpatient (CLI) | payer MEDICAID | END 2020-05-28 17:05 | disposition short-term general hospital (02) | LOC: EMS 17:04 | PROVIDERS: ATTEND Surgery | DX: R10.10 Upper abdominal pain, unspecified (principal) | CPT/HCPCS: A0425; A0427 ==

== ENCOUNTER 2020-11-24 15:26 | Outpatient (CLI) | payer OTHER ==
--- NOTE | 2020-11-25 10:50 | Mammography Report ---
BILATERAL DIGITAL SCREENING MAMMOGRAM 3D/2D: 11/24/2020 CLINICAL: Family history of breast cancer. Routine screening. Comparison is made to exams dated: 01/21/2020 mammogram - [facility], 09/24/2014 mammogram , 11/20/2011 mammogram, 11/09/2011 mammogram, and 11/18/2009 mammogram - [facility]. The tissue of both breasts is heterogeneously dense. This may lower the sensitivity of m ammography. No significant masses, calcifications, or other findings are seen in either breast. There has been no significant interval change. IMPRESSION: NEGATIVE There is no mammographic evidence of malignancy. A 1 year screening mammogram is recommended. This exam was interpreted at Station ID: [id number]. NOTE: For mammograms, a report in lay terms will be sent to the patient. Approximately 15% of breast malignancies will not be visualized mammographically. In the management of a palpable breast mass, a negative mammogram must not discourage biopsy of a clinically suspicious lesion. Electronically Signed By: Dereje Pearl M.D. [email or web address]:11/24/2020 16:10:35 ACR BI-RADS Category 1: Negative 3341F PARENCHYMAL PATTERN: (D) - The breast(s) demonstrate(s) heterogeneously dense fibroglandular gabrielle kunz. BI-RADS CATEGORY: (1) - 1 RECOMMENDATION: (ANNUAL) - Recommend routine annual screening mammography. [id number] 1 year screening LATERALITY: (B)
== END 2020-11-24 15:27 | disposition home or self-care (01) ==
LOC: DI.N 15:26
PROVIDERS: ATTEND Family Medicine
DX: Z12.31 Encounter for screening mammogram for malignant neoplasm of breast (principal); Z80.3 Family history of malignant neoplasm of breast